=== PATIENT | male | born 1965 | race African-American/Black ===

== ENCOUNTER 2024-05-28 17:59 | Emergency (ER) | payer OTHER ==
[2024-05-28 18:10] VITALS: BP 156/83; PULSE 76; RESP 16; BMI 20.7
== END 2024-05-28 19:54 | disposition home or self-care (01) ==
LOC: JERFT 17:59 → JER 17:59 → JERFT 19:54
DX: R05.9 Cough, unspecified (principal); Z20.822 Contact with and (suspected) exposure to COVID-19; V43.62XA Car passenger injured in collision with other type car in traffic accident, initial encounter; Y92.410 Unspecified street and highway as the place of occurrence of the external cause
CPT/HCPCS: 0241U-QW; 87651; 99283-25